=== PATIENT | male | born 1970 | race Caucasian/White ===

== ENCOUNTER → 2021-08-15 | Emergency (ER) | payer SELFPAY ==
[2021-08-15 16:34] VITALS: BP 115/70; PULSE 89; TEMP 98; BMI 22.8
== END | disposition left against medical advice (07) ==
LOC: FER 15:43
DX: S09.90XA Unspecified injury of head, initial encounter (principal); F10.120 Alcohol abuse with intoxication, uncomplicated; W01.0XXA Fall on same level from slipping, tripping and stumbling without subsequent striking against object, initial encounter
CPT/HCPCS: 70450-TC; 82962; 99284-25